=== PATIENT | male | born 1950 ===

== ENCOUNTER 2017-02-09 11:29 | Emergency (ER) | payer OTHER ==
[2017-02-09 11:29] VITALS: BMI 29.4
[2017-02-09 12:16] VITALS: BP 138/83; PULSE 64; RESP 18; TEMP 98; O2SAT 97
--- NOTE | 2017-02-09 12:43 | ED PDOC ---
Lower Extremity Pain/Injury Time Seen by Provider: 02/09/17 12:15 Chief Complaint (Nursing): Lower Extremity Problem/Injury Chief Complaint (Provider): Lower Extremity Problem/Injury History Per: Patient History/Exam Limitations: no limitations Onset/Duration Of Symptoms: Days (1x week) Current Symptoms Are (Timing): Still Present Severity: Moderate Additional Complaint(s): 67 year old male presents to the ED with complaints of left knee pain. He reports that he injured his left knee 1 week ago when he kicked a heavy box with his left foot. He reports that he was seen in the ED 2x days later and had x-ray of knee which was negative. Today he still has persistent pain in his left knee prompting ED visit. He reports taking tylenol with no relief. Patient has knee immobilizer in place to left leg. He has not followed up with clinic, PMD or referred orthopedist. PMD: patient does not have a PMD. - Knee Description Of Injury: Struck With Object (struck left foot with a heavy box, resulted in knee pain) Currently Unable To: Bear Weight Past Medical History Reviewed: Historical Data, Nursing Documentation, Vital Signs Vital Signs: Last Vital Signs Temp 98 F 02/09/17 11:35 Pulse 64 02/09/17 11:35 Resp 18 02/09/17 11:35 BP 138/83 02/09/17 11:35 Pulse Ox 97 02/09/17 11:35 - Medical History PMH: Anemia, Chronic Kidney Disease - Surgical History Surgical History: No Surg Hx - Family History Family History: States: No Known Family Hx - Living Arrangements Living Arrangements: With Family - Social History Current smoker - smoking cessation education provided: No Alcohol: None Drugs: Denies - Home Medications Home Medications: Ambulatory Orders Medication Instructions Recorded Ketotifen Fumarate [Zaditor] 1 drop EACHEYE BID PRN 04/28/16 Omeprazole 20 mg PO DAILY #30 ecc 04/29/16 traMADol [Ultram] 50 mg PO TID PRN #15 tab 02/09/17 - Allergies Allergies/Adverse Reactions: Allergies Allergy/AdvReac Type Severity Reaction Status Date / Time No Known Allergies Allergy Verified 02/09/17 11:44 Wells Criteria for PE - Wells Criteria for Pulmonary Embolism Clinical Signs and Symptoms of DVT: No P.E is #1 Diagnosis, or Equally Likely: No Heart Rate >100: No Immobilization at least 3 days;Surgery previous 4 weeks: No Previous, objectively diagnosed PE or DVT: No Hemoptysis: No Malignancy w/treatment within 6 months, or palliative: No Total Score: 0 Review of Systems ROS Statement: Except As Marked, All Systems Reviewed And Found Negative Musculoskeletal: Positive for: Other (left knee pain) Physical Exam - Reviewed Nursing Documentation Reviewed: Yes Vital Signs Reviewed: Yes - Physical Exam Appears: Positive for: Well, Non-toxic, No Acute Distress Head Exam: Positive for: ATRAUMATIC, NORMOCEPHALIC Skin: Positive for: Warm, Dry Cardiovascular/Chest: Positive for: Regular Rate, Rhythm Respiratory: Positive for: Normal Breath Sounds. Negative for: Respiratory Distress Extremity: Positive for: Other (mild swelling and tenderness medial aspect of left knee, no ecchymosis or calf swelling. ) Neurologic/Psych: Positive for: Alert, Oriented (3x) - ECG O2 Sat by Pulse Oximetry: 97 (RA) Pulse Ox Interpretation: Normal Medical Decision Making Medical Decision Makin:15 Initial impression: 67 year old male with persistent left knee pain due to injury. Initial plan: * tramadol 50mg PO * reevaluation Patient cannot take NSAIDs due to history of GI bleed. Prescription was given for tramadol. Patient was advised to take tramadol with Tylenol for pain control and he was urged to contact clinic for follow-up appointment. [facility] service referral provided. Scribe Attestation: Documented by Stefani Mason, acting as a scribe for Ann Dillard PA-C. Provider Scribe Attestation: All medical record entries made by the Scribe were at my direction and personally dictated by me. I have reviewed the chart and agree that the record accurately reflects my personal performance of the history, physical exam, medical decision making, and the department course for this patient. I have also personally directed, reviewed, and agree with the discharge instructions and disposition. Disposition - Clinical Impression Clinical Impression: Knee sprain - Patient ED Disposition Is Patient to be Admitted: No Counseled Patient/Family Regarding: Diagnosis, Need For Followup, Rx Given - Disposition Referrals: [facility] [Outside] [facility] [Outside] Disposition: Routine/Home Disposition Time: 12:52 Condition: STABLE Additional Instructions: Ice, rest and elevate left knee. Take rx meds along with tylenol for pain. Follow up with clinic for further evaluation. Prescriptions: traMADol [Ultram] 50 mg PO TID PRN #15 tab PRN Reason: Pain, Moderate (4-7) Instructions: Knee Sprain (ED)
== END 2017-02-09 13:00 | disposition home or self-care (01) ==
LOC: H.ER 11:29
DX: S83.92XA Sprain of unspecified site of left knee, initial encounter (principal); W22.8XXA Striking against or struck by other objects, initial encounter; Y92.89 Other specified places as the place of occurrence of the external cause

== ENCOUNTER 2017-08-24 13:38 | Emergency (ER) | payer SELFPAY ==
[2017-08-24 13:39] VITALS: BMI 29.4
[2017-08-24 13:45] VITALS: BP 154/87; PULSE 77; RESP 18; TEMP 98.5; O2SAT 98
--- NOTE | 2017-08-24 15:00 | ED PDOC ---
HPI: Back Time Seen by Provider: 08/24/17 13:48 Chief Complaint (Nursing): Back Pain Chief Complaint (Provider): Low back pain, more lower right History Per: Patient History/Exam Limitations: no limitations Onset/Duration Of Symptoms: Days Current Symptoms Are (Timing): Still Present Full Body Front + Back: 1 - Pain 2 - Most pain Quality Of Discomfort: Sharp Description Of Injury (Context): Lifting heavy at work. Severity: Moderate Pain Scale Rating Of: 8 Previous Symptoms: None Associated Symptoms: None Exacerbating Factor(s): Nothing Additional Complaint(s): Pt has had similar in the past. Past Medical History Reviewed: Historical Data, Nursing Documentation, Vital Signs Vital Signs: Last Vital Signs Temp 98.5 F 08/24/17 13:42 Pulse 77 08/24/17 13:42 Resp 18 08/24/17 13:42 BP 154/87 H 08/24/17 13:42 Pulse Ox 98 08/24/17 13:42 - Medical History PMH: Anemia, Chronic Kidney Disease - Surgical History Surgical History: No Surg Hx - Family History Family History: States: Unknown Family Hx - Home Medications Home Medications: Ambulatory Orders Medication Instructions Recorded Ketotifen Fumarate [Zaditor] 1 drop EACHEYE BID PRN 04/28/16 Omeprazole 20 mg PO DAILY #30 ecc 04/29/16 traMADol [Ultram] 50 mg PO TID PRN #15 tab 02/09/17 predniSONE [predniSONE Tab] 20 mg PO DAILY #12 tab 08/24/17 traMADol [Ultram] 50 mg PO Q6H PRN #15 tab 08/24/17 - Allergies Allergies/Adverse Reactions: Allergies Allergy/AdvReac Type Severity Reaction Status Date / Time No Known Allergies Allergy Verified 08/24/17 13:41 Review of Systems ROS Statement: Except As Marked, All Systems Reviewed And Found Negative Constitutional: Negative for: Fever, Chills Gastrointestinal: Negative for: Nausea, Vomiting, Abdominal Pain Musculoskeletal: Positive for: Back Pain. Negative for: Leg Pain Physical Exam - Reviewed Nursing Documentation Reviewed: Yes Vital Signs Reviewed: Yes - Physical Exam Appears: Positive for: Well, Non-toxic, No Acute Distress Head Exam: Positive for: ATRAUMATIC, NORMAL INSPECTION, NORMOCEPHALIC Skin: Positive for: Normal Color, Warm, DRY Eye Exam: Positive for: Normal appearance ENT: Positive for: Normal ENT Inspection Neck: Positive for: Normal, Painless ROM Cardiovascular/Chest: Positive for: Regular Rate, Rhythm Respiratory: Positive for: Normal Breath Sounds. Negative for: Accessory Muscle Use, Respiratory Distress Back: Positive for: Normal Inspection, Other ((+) right leg raise ). Negative for: Vertebral Tenderness Extremity: Positive for: Normal ROM Neurologic/Psych: Positive for: Alert, Oriented - ECG O2 Sat by Pulse Oximetry: 98 Disposition - Clinical Impression Clinical Impression: Sciatica - Patient ED Disposition Is Patient to be Admitted: No Counseled Patient/Family Regarding: Diagnosis, Need For Followup, Rx Given - Disposition Disposition: Routine/Home Disposition Time: 15:04 Condition: STABLE Prescriptions: predniSONE [predniSONE Tab] 20 mg PO DAILY #12 tab traMADol [Ultram] 50 mg PO Q6H PRN #15 tab PRN Reason: Pain Instructions: Sciatica (ED) Print Language: GUAMANIAN
== END 2017-08-24 15:11 | disposition home or self-care (01) ==
LOC: H.ER 13:38
DX: M54.30 Sciatica, unspecified side (principal)
CPT/HCPCS: 96372; 99281; J2930

== ENCOUNTER 2017-09-20 13:41 | Emergency (ER) | payer SELFPAY ==
[2017-09-20 13:41] VITALS: BMI 29.4
[2017-09-20 14:12] VITALS: BP 133/73; PULSE 70; RESP 18; TEMP 97.9; O2SAT 97
--- NOTE | 2017-09-20 14:54 | ED PDOC ---
HPI: General Adult Time Seen by Provider: 09/20/17 14:33 Chief Complaint (Nursing): Lower Extremity Problem/Injury Chief Complaint (Provider): Lower Extremity Problem/Injury History Per: Patient History/Exam Limitations: no limitations Onset/Duration Of Symptoms: Other (x since August) Additional History Per: Prior Records Additional Complaint(s): Celso is a 67 year old male who presents to the emergency department complaining of ongoing lower back, hip and knee pain since August. Patient was recently seen in ER for same complaints. Patient states subsequent clinic visit where X-Ray was performed. Patient states he has an appointment on October 03 , but came here for evaluation. Patient states he feels knee has crackling sounds when bending. Patient describes mild paralumbar spine pain. Denies falls or taking any medications for pain. PMD: No Family Provider Past Medical History Reviewed: Historical Data, Nursing Documentation, Vital Signs Vital Signs: Last Vital Signs Temp 97.9 F 09/20/17 14:07 Pulse 70 09/20/17 14:07 Resp 18 09/20/17 14:07 BP 133/73 09/20/17 14:07 Pulse Ox 97 09/20/17 15:11 - Medical History PMH: Anemia, Chronic Kidney Disease - Surgical History Surgical History: No Surg Hx - Family History Family History: States: Unknown Family Hx - Home Medications Home Medications: Ambulatory Orders Medication Instructions Recorded Ketotifen Fumarate [Zaditor] 1 drop EACHEYE BID PRN 04/28/16 Omeprazole 20 mg PO DAILY #30 ecc 04/29/16 traMADol [Ultram] 50 mg PO TID PRN #15 tab 02/09/17 predniSONE [predniSONE Tab] 20 mg PO DAILY #12 tab 08/24/17 traMADol [Ultram] 50 mg PO Q6H PRN #15 tab 08/24/17 Naproxen 1 tab PO Q12 PRN #14 tab 09/20/17 - Allergies Allergies/Adverse Reactions: Allergies Allergy/AdvReac Type Severity Reaction Status Date / Time No Known Allergies Allergy Verified 09/20/17 14:06 Review of Systems ROS Statement: Except As Marked, All Systems Reviewed And Found Negative Musculoskeletal: Positive for: Back Pain, Other (Knee Pain, Hip Pain) Physical Exam - Reviewed Nursing Documentation Reviewed: Yes Vital Signs Reviewed: Yes - Physical Exam Appears: Positive for: Well Head Exam: Positive for: ATRAUMATIC, NORMAL INSPECTION, NORMOCEPHALIC Skin: Positive for: Normal Color, Warm, Dry Eye Exam: Positive for: Normal appearance, EOMI, PERRL ENT: Positive for: Normal ENT Inspection Neck: Positive for: Normal Cardiovascular/Chest: Positive for: Regular Rate, Rhythm Respiratory: Positive for: Normal Breath Sounds. Negative for: Respiratory Distress Gastrointestinal/Abdominal: Positive for: Normal Exam Back: Positive for: Normal Inspection Extremity: Positive for: Other (no obvious tenderness or swelling noted to medial aspect of knee, no effusion noted) Neurologic/Psych: Positive for: Alert, Oriented (x 3) - ECG O2 Sat by Pulse Oximetry: 97 (RA) Pulse Ox Interpretation: Normal Medical Decision Making Medical Decision Making: Old ED records reviewed. X-Ray findings reviewed with patient. 09/07/2017 Lumbar Spine X-Ray FINDINGS: BONES: Normal alignment. No listhesis. No fracture. DISC SPACES: Preservation of intervertebral disc height and spaces with the exception of L1- 2. Small non marginal osteophytes also identified. OTHER FINDINGS: Calcified nonaneurysmal abdominal aorta. IMPRESSION: No significant or acute findings to account for/ related to the clinical presentation. 09/07/2017 Left Knee X-Ray FINDINGS: BONES: Normal. No fracture. JOINTS: Normal. No osteoarthritis. JOINT EFFUSION: None. OTHER FINDINGS: None. IMPRESSION: Normal radiographs of the left knee.No significant interval change compared to the prior examination(s). 09/07/2017 Left Hip X-Ray FINDINGS: BONES: Normal. No fracture. JOINTS: Mild and bilaterally symmetrical degenerative change without evidence of protrusio or other pathologic process. SOFT TISSUES: Normal. OTHER FINDINGS: None. IMPRESSION: No acute findings related to/accounting for the clinical presentation. Upon provider evaluation patient is medically stable, and requires no further treatment in the ED at this time. Patient will be discharged with Rx for Naproxen. Counseling was provided and all questions were answered regarding diagnosis and need for follow up with clinic for physical therapy. There is agreement to discharge plan. Return if symptoms persist or worsen. Scribe Attestation: Documented by Javed Guzman, acting as a scribe for Sharri Bonner PA-C. Provider Scribe Attestation: All medical record entries made by the Scribe were at my direction and personally dictated by me. I have reviewed the chart and agree that the record accurately reflects my personal performance of the history, physical exam, medical decision making, and the department course for this patient. I have also personally directed, reviewed, and agree with the discharge instructions and disposition. Disposition - Clinical Impression Clinical Impression: Chronic hip pain, Knee pain - Patient ED Disposition Is Patient to be Admitted: No - Disposition Referrals: [facility] [Outside] Disposition Time: 14:55 Condition: STABLE Prescriptions: Naproxen 1 tab PO Q12 PRN #14 tab PRN Reason: Pain, Moderate (4-7) Instructions: Knee Pain (ED), Arthritis (ED) Forms: [employer] (Kinyarwanda) Print Language: ENGLISH
== END 2017-09-20 15:44 | disposition home or self-care (01) ==
LOC: H.ER 13:41
DX: G89.29 Other chronic pain (principal); N18.9 Chronic kidney disease, unspecified

== ENCOUNTER 2018-08-17 14:14 | Emergency (ER) | payer OTHER ==
[2018-08-17 14:14] VITALS: BMI 29.4
[2018-08-17 14:55] VITALS: BP 141/75; PULSE 61; RESP 18; TEMP 98.3; O2SAT 97
== END 2018-08-17 17:48 | disposition left against medical advice (07) ==
LOC: H.ER 14:14
DX: Z02.89 Encounter for other administrative examinations (principal)
CPT/HCPCS: 99281; LWBS0

== ENCOUNTER 2018-08-18 11:03 | Emergency (ER) | payer OTHER ==
[2018-08-18 11:04] VITALS: BMI 29.4
--- NOTE | 2018-08-18 12:10 | ED PDOC ---
HPI: CCC, URI, Sore Throat Time Seen by Provider: 08/18/18 11:25 Chief Complaint (Nursing): ENT Problem Chief Complaint (Provider): Throat pain History Per: Patient History/Exam Limitations: no limitations Onset/Duration Of Symptoms: Days (x3) Current Symptoms Are (Timing): Still Present Location Of Pain: Throat Additional Complaint(s): 68 year old male presents to the ED for evaluation of throat pain for 3 days. Patient reports pain on swallowing. He states he took no medications prior to arrival. Denies recent travel, sick contacts, fever, cough, SOB, nausea, vomiting, diarrhea, abdominal pain, chest pain, or ear pain. PMD: clinic Past Medical History Reviewed: Historical Data, Nursing Documentation, Vital Signs Vital Signs: Last Vital Signs Temp 98.2 F 08/18/18 11:15 Pulse 66 08/18/18 11:15 Resp 17 08/18/18 11:15 BP 144/78 08/18/18 11:15 Pulse Ox 96 08/18/18 11:15 - Medical History PMH: Anemia, Chronic Kidney Disease - Surgical History Surgical History: No Surg Hx - Family History Family History: States: Unknown Family Hx - Social History Current smoker - smoking cessation education provided: No Alcohol: Social - Home Medications Home Medications: Ambulatory Orders Medication Instructions Recorded Ketotifen Fumarate [Zaditor] 1 drop EACHEYE BID PRN 04/28/16 Omeprazole 20 mg PO DAILY #30 ecc 04/29/16 traMADol [Ultram] 50 mg PO TID PRN #15 tab 02/09/17 predniSONE [predniSONE Tab] 20 mg PO DAILY #12 tab 08/24/17 traMADol [Ultram] 50 mg PO Q6H PRN #15 tab 08/24/17 Naproxen 1 tab PO Q12 PRN #14 tab 09/20/17 Acetaminophen [Acetaminophen 8 650 mg PO Q8 PRN #21 tablet.er 08/18/18 Hour] Ibuprofen [Motrin Tab] 600 mg PO Q6 PRN #20 tab 08/18/18 - Allergies Allergies/Adverse Reactions: Allergies Allergy/AdvReac Type Severity Reaction Status Date / Time No Known Allergies Allergy Verified 09/20/17 14:06 Review of Systems ROS Statement: Except As Marked, All Systems Reviewed And Found Negative Constitutional: Negative for: Fever ENT: Positive for: Throat Pain. Negative for: Ear Pain Cardiovascular: Negative for: Chest Pain Respiratory: Negative for: Cough, Shortness of Breath Gastrointestinal: Negative for: Nausea, Vomiting, Abdominal Pain, Diarrhea Physical Exam - Reviewed Nursing Documentation Reviewed: Yes Vital Signs Reviewed: Yes - Physical Exam Comments: GENERAL APPEARANCE: Patient is awake, alert, oriented x 3, in no acute distress. SKIN: Warm, dry; (-) cyanosis. EYES: (-) conjunctival pallor. ENMT: Mucous membranes moist. Airway patent: (-) stridor. Pharynx: (+) faint erythema, (-) exudate. Uvula midline. (-) hypertrophy. NECK: (-) tenderness, (-) stiffness, (-) lymphadenopathy. CHEST AND RESPIRATORY: (-) rhonchi, (-) rales, (-) wheezes, (-) pleural rub; breath sounds equal bilaterally. HEART AND CARDIOVASCULAR: (-) irregularity; (-) murmur, (-) gallop. ABDOMEN AND GI: Soft; (-) tenderness. EXTREMITIES: (-) deformity; (-) edema. NEURO AND PSYCH: Mental status as above. Cranial nerves grossly intact; strength symmetric. - ECG O2 Sat by Pulse Oximetry: 96 (RA) Pulse Ox Interpretation: Normal Medical Decision Making Medical Decision Making: Initial Impression: Acute throat pain, likely viral pharyngitis Initial Plan: --Motrin 600mg PO --Throat culture --Rapid strep group 1240 Rapid Strep: Negative On re-evaluation, patient reports improvement of symptoms. On exam, patient remains AAOx3, in no acute distress. Speaking and swallowing saliva without difficulty. Vitals stable. Lab/Diagnostic results d/w the patient in great detail. Diagnosis of viral pharyngitis, throat pain in adult d/w the patient. Based on history, exam and diagnostic results, plan will be for outpatient follow up with PMD/clinic. Patient instructed to follow-up with pmd / referral provided / the clinic in 1- 2 days without fail. Advised to take medication as prescribed. Return to the emergency room at any time for any new or worsening symptoms. Patient states he fully agrees with and understands discharge instructions. States that he agrees with the plan and disposition. Verbalized and repeated discharge instructions and plan. I have given the patient opportunity to ask any additional questions. Scribe Attestation: Documented by Braxton Pichardo acting as a scribe for Stefani VELARDE. Provider Scribe Attestation: All medical record entries made by the Scribe were at my direction and personally dictated by me. I have reviewed the chart and agree that the record accurately reflects my personal performance of the history, physical exam, medical decision making, and the department course for this patient. I have also personally directed, reviewed, and agree with the discharge instructions and disposition. Disposition - Clinical Impression Clinical Impression: Throat pain in adult, Viral pharyngitis - Patient ED Disposition Is Patient to be Admitted: No Counseled Patient/Family Regarding: Studies Performed, Diagnosis, Need For Followup, Rx Given - Disposition Referrals: [facility] [Outside] Disposition: Routine/Home Disposition Time: 12:40 Condition: STABLE Additional Instructions: The emergency medical care you received today was directed at your acute symptoms. If you were prescribed any medication, please fill it and take as directed. It may take several days for your symptoms to resolve. Return to the Emergency Department if your symptoms worsen, do not improve, or if you have any other problems. Please contact your doctor in 2 days for re-evaluation and follow up / or call one of the physicians/clinics you have been referred to that are listed on the Patient Visit Information form that is included in your discharge packet. Bring any paperwork you were given at discharge with you along with any medications you are taking to your follow up visit. Our treatment cannot replace ongoing medical care by a primary care provider (PCP) outside of the emergency department. Prescriptions: Acetaminophen [Acetaminophen 8 Hour] 650 mg PO Q8 PRN #21 tablet.er PRN Reason: pain/fever Ibuprofen [Motrin Tab] 600 mg PO Q6 PRN #20 tab PRN Reason: Pain, Moderate (4-7) Instructions: Viral Pharyngitis, Sore Throat, Adult (DC) Forms: [employer] (Turkmen) Print Language: CHILEAN - POA Present On Arrival: None Results - Lab Results Lab Results: 08/18/18 12:00 Grp A Beta Strep Ag Negative
[2018-08-18 13:10] VITALS: BP 142/82; PULSE 62; RESP 18; TEMP 98; O2SAT 99
== END 2018-08-18 12:55 | disposition home or self-care (01) ==
LOC: H.ER 11:03
DX: R07.0 Pain in throat (principal); J02.9 Acute pharyngitis, unspecified